=== PATIENT | male | born 1995 | race African-American/Black ===

== ENCOUNTER 2017-08-16 22:43 | Emergency (ER) | payer OTHER ==
[~2017-08-16] VITALS: Ht 182.9 cm; Wt 110.0 kg
[2017-08-16 22:46] VITALS: BP 154/104; PULSE 72; RESP 18; O2SAT 100
[2017-08-16] MEDS ORDERED: SODIUM CHLOR 0.9% 1000 ML INJ 1,000 ML IV SCH (22:46)
[2017-08-16 22:51] VITALS: BP 159/101; PULSE 73; RESP 18; TEMP 99.3; O2SAT 100
[2017-08-16] MEDS ORDERED: NALOXONE HCL 2 MG/2 ML VIAL IV PUSH PRN (23:00)
[2017-08-16] MEDS ORDERED: SODIUM CHLORIDE 0.9% FLUSH 5 ML FLUSH IV FLUSH PRN (23:00)
--- NOTE | 2017-08-16 23:08 | PD ---
HPI Chief Complaint: Altered Mental Status Time Seen by Provider: 22:46 Travel History International Travel<30 days: No (UNABLE TO ASSESS) Contact w/Intl Traveler<30days: No (UNABLE TO ASSESS) Traveled to known affect area: No (UNABLE TO ASSESS) History of Present Illness HPI [age]ys[age] appearing Afro-[place]i male Patient dropped off out front by his friends with decreased level of consciousness and altered mental status. There is no significant history given. Patient is unresponsive although breathing normally with normal O2 sat percent on room air. Patient is unresponsive to verbal stimuli. He is brought directly back to [place]. Further history obtained from friends who arrived after the patient was here in the emergency Department telling of the he is more in 1986, and was noted to be sitting "just breathing" when he clutched his chest and fell forward with apparent altered mental status. They relate that he has had several episodes similar to this in the past. [facility] Past Medical History Medical History: Unable to Obtain Tetanus Vaccination: Unknown Past Surgical History Surgical History: Unable to Obtain Social History Alcohol Use: No (UNABLE TO ASSESS) Tobacco Use: No Substance Use: No (UNABLE TO ASSESS) Allergies-Medications (Allergen,Severity, Reaction): Coded Allergies: No Known Allergies (Unverified , 08/16/17) Review of Systems ROS Limitations: Clinical Condition, Altered Mental Status, Unresponsive General / Constitutional: No: Fever Eyes: No: Visual changes HENT: No: Headaches Cardiovascular: No: Chest Pain or Discomfort Respiratory: No: Shortness of Breath Gastrointestinal: No: Abdominal Pain Genitourinary: No: Dysuria Musculoskeletal: No: Pain Skin: No Rash Neurologic: No: Weakness Psychiatric: No: Depression Endocrine: No: Polydipsia Hematologic/Lymphatic: No: Easy Bruising Physical Exam Narrative GENERAL: Patient appears obtunded with normal respiratory rate and O2 sat of 100 % on room air. SKIN: Warm and dry. Normal color. Normal turgor. No obvious signs of trauma. HEAD: Atraumatic. Normocephalic. EYES: Pupils equal and round. No scleral icterus. No injection or drainage. ENT: No nasal bleeding or discharge. Mucous membranes pink and moist. Pharynx is clear. Airway is patent. NECK: Trachea midline. Supple and no apparent tenderness.. CARDIOVASCULAR: Regular rate and rhythm. RESPIRATORY: No accessory muscle use. Clear to auscultation. Breath sounds equal bilaterally. GASTROINTESTINAL: Abdomen soft, non-tender, nondistended. Hepatic and splenic margins not palpable. MUSCULOSKELETAL: Extremities without clubbing, cyanosis, or edema. No obvious deformities. NEUROLOGICAL: Apparently obtunded, but patient will not allow his hand hit his face, and seemed to help set up when the nursing staff was undressing him. No obvious cranial nerve deficits. Motor grossly within normal limits. Five out of 5 muscle strength in the arms and legs. Normal speech. PSYCHIATRIC: Unable to assess. Data Data Last Documented VS Vital Signs Date Time Temp Pulse Resp B/P (MAP) Pulse Ox O2 Delivery O2 Flow Rate FiO2 08/16/17 22:51 99.3 73 18 159/101 (120) 100 Room Air Orders Orders Electrocardiogram (08/16/17 22:46) Ammonia (08/16/17 22:46) Complete Blood Count With Diff (08/16/17 22:46) Comprehensive Metabolic Panel (08/16/17 22:46) Creatine Kinase (Cpk) (08/16/17 22:46) Prothrombin Time / Inr (Pt) (08/16/17 22:46) Act Partial Throm Time (Ptt) (08/16/17 22:46) Urinalysis - C+S If Indicated (08/16/17 22:46) Chest, Single Ap (08/16/17 22:46) Ct Brain W/O Iv Contrast(Rout) (08/16/17 22:46) Blood Glucose (08/16/17 22:46) Ecg Monitoring (08/16/17 22:46) Iv Access Insert/Monitor (08/16/17 22:46) Cath For Specimen (08/16/17 22:46) Oximetry (08/16/17 22:46) Naloxone Inj (Narcan Inj) (08/16/17 23:00) Sodium Chloride 0.9% Flush (Ns Flush) (08/16/17 23:00) Sodium Chlor 0.9% 1000 Ml Inj (Ns 1000 M (08/16/17 22:46) Drug Screen, Random Urine (08/16/17 22:46) Alcohol (Ethanol) (08/16/17 22:46) Tylenol (Acetaminophen) (08/16/17 22:46) Salicylates (Aspirin) (08/16/17 22:46) Apply Cervical Collar (08/16/17 22:46) Ckmb (Isoenzyme) Profile (08/16/17 23:08) Troponin I (08/16/17 23:08) Collar [place] (08/16/17 ) MDM Medical Decision Making Medical Screen Exam Complete: Yes Emergency Medical Condition: Yes Differential Diagnosis Altered mental status. Possible intoxication. Possible psychiatric issue. Narrative Course Patient appears medically stable at time of exam with normal vitals and normal O2 sats without obvious signs of threatened airway. A she is placed in a [place] collar for airway protection. CT of the head is ordered. EKG shows normal sinus rhythm. Labs ordered including CBC, CMP, ammonia level, urinalysis, cardiac panel, urine drug screen, urinalysis, salicylate and acetaminophen levels are ordered as well. Chest x-ray is ordered. 4 mg of Narcan is ordered to be used when necessary airway compromise. 2300 hrs. patient is discussed with Dr. Paula duron seems care the patient will determine final disposition. Condition: Stable Geoffrey Cha Aug 16, 2017 23:08
--- NOTE | 2017-08-16 23:33 | RADRPT ---
EXAM DATE/TIME: 08/16/2017 23:54 [facility] COMPARISON: No previous studies available for comparison. INDICATIONS : Trauma. MEDICAL HISTORY : None. SURGICAL HISTORY : None. ENCOUNTER: Initial ACUITY: 1 day PAIN SCORE: Non-responsive. LOCATION: Bilateral chest FINDINGS: A single view of the chest demonstrates the lungs to be symmetrically aerated without evidence of mas s, infiltrate or effusion. Minimal basilar atelectasis. The cardiomediastinal contours are unremarkab le. Osseous structures are intact. CONCLUSION: 1. Minimal basilar atelectasis. No effusion. No pneumothorax. Aldo Alicea MD on August 16, 2017 at 23:31 Board Certified Radiologist. This report was verified electronically.
[2017-08-16 23:39] LABS: AUTOMATED NEUTROPHIL # 3.4 TH/MM3 (1.8-7.7); BASOPHIL % 0.4 % (0.0-2.0); EOSINOPHIL # 0.1 TH/MM3 (0-0.4); EOSINOPHIL % 0.9 % (0.0-4.0); HEMATOCRIT 46.9 % (39.0-51.0); HEMOGLOBIN 15.6 GM/DL (13.0-17.0); LYMPH % 35.7 % (9.0-44.0); LYMPHOCYTE # 2.4 TH/MM3 (1.0-4.8); MEAN CELL VOLUME 94.2 FL (80.0-100.0); MEAN CORPUSCULAR HEMOGLOBIN 31.3 PG (27.0-34.0); MEAN CORPUSCULAR HGB CONC 33.3 % (32.0-36.0); MEAN PLATELET VOLUME 8.5 FL (7.0-11.0); MONO % 12.7 % (0.0-8.0); MONOCYTE # 0.9 TH/MM3 (0-0.9); NEUT % 50.3 % (16.0-70.0); PLATELET COUNT 262 TH/MM3 (150-450); RED BLOOD COUNT 4.98 MIL/MM3 (4.50-5.90); RED CELL DISTRIBUTION WIDTH 12.4 % (11.6-17.2); WHITE BLOOD COUNT 6.9 TH/MM3 (4.0-11.0)
[2017-08-16 23:45] LABS: AMORPHOUS SEDIMENT, URINE OCC; BILIRUBIN, URINE NEG (NEG); BLOOD, URINE NEG (NEG); GLUCOSE,URINE NEG (NEG); KETONE, URINE NEG (NEG); MUCUS URINE FEW /lpf (OCC); NITRITE,URINE NEG (NEG); PH, URINE 7.5 (5.0-8.5); SQUAMOUS EPITHELIAL CELL URINE <1 /hpf (0-5); URINE COLOR YELLOW (YELLW/STRAW); URINE LEUKOCYTE ESTERASE MOD (NEG)
[2017-08-16 23:49] LABS: PROTHROMBIN TIME - PATIENT 11.3 SEC (9.8-11.6)
[2017-08-17 00:11] LABS: ALBUMIN 4.2 GM/DL (3.4-5.0); ALKALINE PHOSPHATASE 99 U/L (45-117); ALT (GPT) 26 U/L (12-78); AST (GOT) 13 U/L (15-37); BICARBONATE 29.1 MEQ/L (21.0-32.0); BLOOD UREA NITROGEN 11 MG/DL (7-18); CALCIUM 8.6 MG/DL (8.5-10.1); CHLORIDE 107 MEQ/L (98-107); CREATININE 1.03 MG/DL (0.60-1.30); GLOMERULAR FILTRATION RATE 76 ML/MIN (>89); GLUCOSE,RANDOM 79 MG/DL (74-106); SODIUM (NA) 141 MEQ/L (136-145); TOTAL BILIRUBIN ADULT 0.3 MG/DL (0.2-1.0); TOTAL PROTEIN 7.8 GM/DL (6.4-8.2)
[2017-08-17 00:12] LABS: ACETAMINOPHEN LESS THAN 2.0 MCG/ML (10.0-30.0)
--- NOTE | 2017-08-17 00:36 | RADRPT ---
EXAM DATE/TIME: 08/17/2017 00:26 [facility] COMPARISON: No previous studies available for comparison. INDICATIONS : Altered mental status. Syncopal episode. RADIATION DOSE: 36.27 CTDIvol (mGy) MEDICAL HISTORY : None SURGICAL HISTORY : None. ENCOUNTER: Initial ACUITY: 1 day PAIN SCALE: 0/10 LOCATION: cranial TECHNIQUE: Multiple contiguous axial images were obtained of the head. Using automated exposure control and adj ustment of the mA and/or kV according to patient size, radiation dose was kept as low as reasonably a chievable to obtain optimal diagnostic quality images. DICOM format image data is available electro nically for review and comparison. FINDINGS: CEREBRUM: The ventricles are normal for age. No evidence of midline shift, mass lesion, hemorrhage or acute in farction. No extra-axial fluid collections are seen. POSTERIOR FOSSA: The cerebellum and brainstem are intact. The 4th ventricle is midline. The cerebellopontine angle i s unremarkable. EXTRACRANIAL: The visualized portion of the orbits is intact. SKULL: The calvaria is intact. No evidence of skull fracture. CONCLUSION: Negative non-contrast head CT. Jens Hartmann MD on August 17, 2017 at 0:34 Board Certified Radiologist. This report was verified electronically.
--- NOTE | 2017-08-17 00:38 | RADRPT ---
EXAM DATE/TIME: 08/17/2017 00:26 [facility] COMPARISON: No previous studies available for comparison. INDICATIONS : Trauma, syncopal episode. RADIATION DOSE: 32.33 CTDIvol (mGy) MEDICAL HISTORY : None SURGICAL HISTORY : None. ENCOUNTER: Initial ACUITY: 1 day PAIN SCALE: 2/10 LOCATION: neck TECHNIQUE: Volumetric scanning of the cervical spine was performed. Multiplanar reconstructions i n the sagittal, coronal and oblique axial planes were performed. Using automated exposure control a nd adjustment of the mA and/or kV according to patient size, radiation dose was kept as low as reason ably achievable to obtain optimal diagnostic quality images. DICOM format image data is available e lectronically for review and comparison. FINDINGS: The sagittal reconstructions demonstrate normal alignment and normal prevertebral soft tissues. The d ens is intact and there is a normal atlantoaxial relationship. The axial images demonstrate that the vertebral bodies and posterior elements are intact. The soft ti ssues are within normal limits. There is no evidence of acute fracture or malalignment. CONCLUSION: Negative trauma CT. Jens Hartmann MD on August 17, 2017 at 0:36 Board Certified Radiologist. This report was verified electronically.
[2017-08-17 01:30] VITALS: BP 135/80; PULSE 86; RESP 18; O2SAT 98
--- NOTE | 2017-08-17 01:39 | PD ---
Data Data Last Documented VS Vital Signs Date Time Temp Pulse Resp B/P (MAP) Pulse Ox O2 Delivery O2 Flow Rate FiO2 08/17/17 01:43 08/17/17 01:30 86 18 98 Room Air 08/16/17 22:51 99.3 Orders Orders Electrocardiogram (08/16/17 22:46) Ammonia (08/16/17 22:46) Complete Blood Count With Diff (08/16/17 22:46) Comprehensive Metabolic Panel (08/16/17 22:46) Creatine Kinase (Cpk) (08/16/17 22:46) Prothrombin Time / Inr (Pt) (08/16/17 22:46) Act Partial Throm Time (Ptt) (08/16/17 22:46) Urinalysis - C+S If Indicated (08/16/17 22:46) Chest, Single Ap (08/16/17 22:46) Ct Brain W/O Iv Contrast(Rout) (08/16/17 22:46) Blood Glucose (08/16/17 22:46) Ecg Monitoring (08/16/17 22:46) Iv Access Insert/Monitor (08/16/17 22:46) Cath For Specimen (08/16/17 22:46) Oximetry (08/16/17 22:46) Naloxone Inj (Narcan Inj) (08/16/17 23:00) Sodium Chloride 0.9% Flush (Ns Flush) (08/16/17 23:00) Sodium Chlor 0.9% 1000 Ml Inj (Ns 1000 M (08/16/17 22:46) Drug Screen, Random Urine (08/16/17 22:46) Salicylates (Aspirin) (08/16/17 22:46) Apply Cervical Collar (08/16/17 22:46) Collar [place] (08/16/17 ) Tylenol (Acetaminophen) (08/16/17 22:50) Alcohol (Ethanol) (08/16/17 22:50) Ct Cerv Spine W/O Contrast (08/17/17 ) Ed Discharge Order (08/17/17 01:40) Labs Laboratory Tests Test 08/16/17 22:50 08/16/17 22:56 White Blood Count 6.9 TH/MM3 Red Blood Count 4.98 MIL/MM3 Hemoglobin 15.6 GM/DL Hematocrit 46.9 % Mean Corpuscular Volume 94.2 FL Mean Corpuscular Hemoglobin 31.3 PG Mean Corpuscular Hemoglobin Concent 33.3 % Red Cell Distribution Width 12.4 % Platelet Count 262 TH/MM3 Mean Platelet Volume 8.5 FL Neutrophils (%) (Auto) 50.3 % Lymphocytes (%) (Auto) 35.7 % Monocytes (%) (Auto) 12.7 % Eosinophils (%) (Auto) 0.9 % Basophils (%) (Auto) 0.4 % Neutrophils # (Auto) 3.4 TH/MM3 Lymphocytes # (Auto) 2.4 TH/MM3 Monocytes # (Auto) 0.9 TH/MM3 Eosinophils # (Auto) 0.1 TH/MM3 Basophils # (Auto) 0.0 TH/MM3 CBC Comment DIFF FINAL Differential Comment Prothrombin Time 11.3 SEC Prothromb Time International Ratio 1.0 RATIO Activated Partial Thromboplast Time 28.1 SEC Blood Urea Nitrogen 11 MG/DL Creatinine 1.03 MG/DL Random Glucose 79 MG/DL Total Protein 7.8 GM/DL Albumin 4.2 GM/DL Calcium Level 8.6 MG/DL Alkaline Phosphatase 99 U/L Aspartate Amino Transf (AST/SGOT) 13 U/L Alanine Aminotransferase (ALT/SGPT) 26 U/L Total Bilirubin 0.3 MG/DL Sodium Level 141 MEQ/L Potassium Level 4.2 MEQ/L Chloride Level 107 MEQ/L Carbon Dioxide Level 29.1 MEQ/L Anion Gap 5 MEQ/L Estimat Glomerular Filtration Rate 76 ML/MIN Ammonia 26 MCMOL/L Total Creatine Kinase 184 U/L Acetaminophen Level LESS THAN 2.0 MCG/ML Ethyl Alcohol Level LESS THAN 3 MG/DL Urine Color YELLOW Urine Turbidity HAZY Urine pH 7.5 Urine Specific [place] 1.029 Urine Protein TRACE mg/dL Urine Glucose (UA) NEG mg/dL Urine Ketones NEG mg/dL Urine Occult Blood NEG Urine Nitrite NEG Urine Bilirubin NEG Urine Urobilinogen 2.0 MG/DL Urine Leukocyte Esterase MOD Urine RBC 3 /hpf Urine WBC 4 /hpf Urine Squamous Epithelial Cells <1 /hpf Urine Amorphous Sediment OCC Urine Mucus FEW /lpf Microscopic Urinalysis Comment CATH-CULT NOT IND Salicylates Level LESS THAN 1.7 MG/DL Urine Opiates Screen NEG Urine Barbiturates Screen NEG Urine Amphetamines Screen NEG Urine Benzodiazepines Screen NEG Urine Cocaine Screen NEG Urine Cannabinoids Screen NEG MDM Supervised Visit with LIZBET: Yes Narrative Course I, Dr. Mitchell, have reviewed the advance practice practitioner's documentation and am in agreement, met with the patient face to face, made the diagnosis, and the medical decision making was done by me. *My assessment and Findings: Patient care assumed from Kb COLE at 2300. Patient is Stan Yancey a 22 year old male presents after syncopal episode. Has had similar episodes in the past. Accompanied by friends who state that he clutched his chest, fell forward and then shook. He shook fast and then was talking non-sense and then proceeded to shake again. He had 4 episodes like this prior to arriving in the ER. The patient on my reassessment is eager for discharge, alert and awake, denies any chest pain nor SOB. Initial workup negative. I discussed with him the possibility of seizure and recommended follow up with a neurologist. Somatiform disorder is also on differential. He was offered admission but adamantly declined. He is stable for discharge. Diagnosis Primary Impression: Syncope Qualified Codes: R55 - Syncope and collapse Referrals: Yanci Adam MD Disposition: 01 DISCHARGE HOME Condition: Stable Blayne Mitchell MD Aug 17, 2017 01:39
--- NOTE | 2017-08-17 13:20 | EKG ---
Date Performed: 08/16/2017 Time Performed: 22:45:36 PTAGE: 22 years EKG: Sinus rhythm ST ELEVATION, PROBABLY EARLY REPOLARIZATION BORDERLINE ECG NO PREVIOUS TRACING DOCTOR: Alberto Foreman Interpretating Date/Time 08/17/2017 13:20:01
== END 2017-08-17 02:03 | disposition home or self-care (01) ==
LOC: NEPE 22:43 → EDBD 22:43 → NEPE 08-17 02:03
DX: R55 Syncope and collapse (principal)
CPT/HCPCS: 70450; 71010; 72125; 80053; 80307; 81001; 82140; 82550; 85025; 85610; 85730; 93005; 96360; 99285; J7030; L0150

== ENCOUNTER 2017-08-27 08:26 | Emergency (ER) | payer SELFPAY ==
[~2017-08-27] VITALS: Ht 172.7 cm; Wt 85.0 kg
[2017-08-27 08:32] VITALS: BP 137/72; PULSE 73; RESP 18; TEMP 99.3; O2SAT 98
[2017-08-27] MEDS ORDERED: ADDE30TA PO (08:40)
[2017-08-27] MEDS ORDERED: LISD60 PO (08:42)
--- NOTE | 2017-08-27 09:13 | PD ---
HPI Chief Complaint: Psychiatric Symptoms Time Seen by Provider: 08:44 Travel History International Travel<30 days: No Contact w/Intl Traveler<30days: No Traveled to known affect area: No History of Present Illness HPI 22-year-old man presents emergent harmful and panic attack. He states he was in a stressful situation was morning with old acquaintances any other panic attack and was crying and his friends during the school and his mom wanted him to get checked out because of it. He's had panic attacks in the past. States his bipolar disorder but doesn't really follow up with anybody. He is feeling well before this morning and is feeling back to normal now but still little bit stressed out. History Past Medical History Medical History: Denies Significant Hx Past Surgical History Surgical History: No Previous Surgery Social History Alcohol Use: No Tobacco Use: No Allergies-Medications (Allergen,Severity, Reaction): Coded Allergies: No Known Allergies (Unverified Adverse Reaction, Unknown, 08/27/17) Reported Meds & Prescriptions Reported Meds & Active Scripts Active Reported Vyvanse (Lisdexamfetamine Dimesylate) 60 Mg Cap 60 Mg PO DAILY Adderall (Amphetamine-Dextroamphetamine) 30 Mg Tab 30 Mg PO DAILY Avoid late evening doses. Space doses at least 4 to 6 hours if more than once/day dosing. Review of Systems Except as stated in HPI: all other systems reviewed are Neg Physical Exam Narrative GENERAL: Well-appearing 22-year-old man, no acute distress. SKIN: Focused skin assessment warm/dry. HEAD: Atraumatic. Normocephalic. EYES: Pupils equal and round. No scleral icterus. No injection or drainage. ENT: No nasal bleeding or discharge. Mucous membranes pink and moist. NECK: Trachea midline. No JVD. CARDIOVASCULAR: Regular rate and rhythm. No murmur appreciated. RESPIRATORY: No accessory muscle use. Clear to auscultation. Breath sounds equal bilaterally. GASTROINTESTINAL: Abdomen soft, non-tender, nondistended. Hepatic and splenic margins not palpable. MUSCULOSKELETAL: No obvious deformities. No clubbing. No cyanosis. No edema. Data Data Last Documented VS Vital Signs Date Time Temp Pulse Resp B/P (MAP) Pulse Ox O2 Delivery O2 Flow Rate FiO2 08/27/17 08:32 99.3 73 18 137/72 (93) 98 Orders Orders Lorazepam (Ativan) (08/27/17 09:15) [facility] Medical Decision Making Medical Screen Exam Complete: Yes Emergency Medical Condition: Yes Differential Diagnosis Anxiety, depression, other Narrative Course Medical decision making 22 year-old woman a panic attack at school. He looks fine. He'll be given resources for outpatient follow-up. Diagnosis Primary Impression: Anxiety Additional Instructions: Follow-up with outpatient mental health resources as discussed. Disposition: 01 DISCHARGE HOME Condition: Stable Tramaine Marley MD Aug 27, 2017 09:13
[2017-08-27] MEDS ORDERED: LORazepam 1 MG TAB PO ONE (09:15)
== END 2017-08-27 09:52 | disposition home or self-care (01) ==
LOC: NEPC 08:26
DX: F41.9 Anxiety disorder, unspecified (principal); F31.9 Bipolar disorder, unspecified
CPT/HCPCS: 99283